=== PATIENT | female | born 2000 | race Caucasian/White ===

== ENCOUNTER → 2019-01-30 | Outpatient (CLI) | payer OTHER ==
[2019-01-30 12:35] LABS: HEMATOCRIT 40.3 % (37.0-47.0); HEMOGLOBIN 13.7 gm/dL (12.0-15.0); MCH 29.5 pg (26.0-34.0); MCV 86.6 fL (80.0-100.0); PLATELET COUNT 226 thou/uL (150-400); RBC 4.65 mil/uL (4.20-5.00); RDW 12.7 % (10.5-14.5); WBC 6.7 thou/uL (4.0-11.0)
[2019-01-30 12:54] LABS: ALBUMIN 3.6 g/dL (3.4-5.0); CALCIUM 9.1 mg/dL (8.5-10.1); CREATININE 0.9 mg/dL (0.6-1.0); POTASSIUM 3.8 mmol/L (3.5-5.1); TOTAL BILIRUBIN 0.4 mg/dL (<0.1-1.0); TOTAL PROTEIN 6.8 g/dL (6.4-8.2)
[2019-01-30 13:16] LABS: ABSOLUTE NEUTROPHILS 4.7 thou/uL (1.4-8.2); PLATELET ESTIMATE NORMAL
[2019-01-31 03:07] LABS: ANTI-EBNA <18.0 U/mL (0.0-17.9); ANTI-VCA/IgG <18.0 U/mL (0.0-17.9); ANTI-VCA/IgM <36.0 U/mL (0.0-35.9); EBV EARLY ANTIGEN <9.0 U/mL (0.0-8.9)
--- NOTE | 2019-01-31 16:24 | EKG ---
[address] [address] ELECTROCARDIOGRAM REPORT Name: WICHO MARS Room #: REG [facility]#: [id number] ������������������ Admission: 01/30/19 ������������������ Attend Phys: Sherice Salguero MD Discharge: ������������������ Date of : [birth year] Report #: [id number] ����������������������������������������������������������������� [id number] THIS REPORT FOR: //name// [facility] Test Date: 2019-01-30 Test Time: 12:32:50 Pat Name: WICHO MARS Department: Room: Gender: F Mussel Opener: Rubina DE SOUZA : 2000 Requested By: Sherice Salguero Order Number: [id number] MD: Zackary Little Measurements Intervals [place] Rate: 102 P: 74 [place]: 137 QRS: 57 QRSD: 81 T: 47 QT: 340 QTc: 443 Interpretive Statements Sinus tachycardia No previous ECG available for comparison Electronically Signed On 01-31-2019 16:24:46 CDT by Zackary Little [email or web address] ��������������������������������������������� <ELECTRONICALLY SIGNED> ���������������������������������������� By: Zackary Little MD ��������������������������������������������� 01/31/19 1624 1232 1232 MD GILLES Wyman
== END ==
LOC: LABMALL 11:47
PROVIDERS: Pediatrics
DX: R00.0 Tachycardia, unspecified (principal); J02.9 Acute pharyngitis, unspecified; G47.00 Insomnia, unspecified